=== PATIENT | female | born 2005 | race Caucasian/White ===

== ENCOUNTER 2025-01-04 12:49 | Emergency (ER) | payer SELFPAY ==
[2025-01-04] MEDS: Lidocaine 2% Viscous Solution 15 ML UD PO ONE (14:13)
== END 2025-01-04 14:27 | disposition home or self-care (01) ==
LOC: MW.ED 12:49
DX: J02.0 Streptococcal pharyngitis (principal); Z75.3 Unavailability and inaccessibility of health-care facilities
CPT/HCPCS: 87651; 96372; 99283; A9270; J1100; J3490